=== PATIENT | female | born 1990 | race Caucasian/White ===

== ENCOUNTER 2022-06-13 18:38 | Outpatient (CLI) | payer BC, SELFPAY | END 2022-06-13 18:39 | disposition home or self-care (01) | LOC: NFLDUCREF 06-16 09:58 | PROVIDERS: PCP Nurse Practitioner Family; Visit Provider Registered Nurse | DX: R30.0 Dysuria (principal); N39.0 Urinary tract infection, site not specified | CPT/HCPCS: 87086 ==

== ENCOUNTER 2022-07-15 09:59 | Outpatient (CLI) | payer BC, SELFPAY ==
[2022-07-15 10:22] LABS: Appearance Urine Clear (Clear); Bilirubin Urine Negative (Negative); Blood Urine Negative (Negative); Color Urine Yellow (Yellow); Glucose Urine Negative (Negative); Ketones Urine Negative (Negative); Leukocyte Esterase Urine Negative (Negative); Nitrite Urine Negative (Negative); Protein Urine Negative (Negative); Specific Gravity Urine <= 1.005 (1.000-1.030); Urobilinogen Urine 0.2 (0.2-1.0); pH Urine 6.5 (5.0-8.5)
[2022-07-15 15:30] LABS: Basophils Absolute Auto 0.04 K/uL (0.00-0.30); Basophils Percent Auto 0.5 % (0.0-3.0); Eosinophils Percent Auto 1.2 % (0.0-7.0); Hemoglobin* 13.8 gm/dL (12.0-16.0); Immature Granulocytes Abs Auto 0.03 K/uL (0.00-0.30); Immature Granulocytes Pct Auto 0.4 %; Lymphocytes Absolute Auto 1.86 K/uL (0.90-2.90); Lymphocytes Percent Auto 21.9 % (20-44); Mean Corpuscular HGB Conc 34 gm/dL (32-36); Mean Corpuscular Hemoglobin 27 pg (26-34); Mean Corpuscular Volume 80 fL (80-100); Monocytes Percent Auto 11.9 % (0.0-11.0); Neutrophils Absolute Auto 5.45 K/uL (1.7-7.0); Neutrophils Percent Auto 64.1 % (42.0-72.0); Platelet Count* 257 K/uL (140-440); RDW Coefficient of Variation % 13.8 % (11.5-15.5); Red Blood Count 5.16 m/uL (4.00-5.20); White Blood Count* 8.49 K/uL (4.50-11.00)
[2022-07-15 15:35] LABS: Slide Review Reflex No
[2022-07-15 15:37] LABS: Chloride* 103 mmol/L (96-114); Potassium* 3.5 mmol/L (3.6-5.1); Sodium* 138 mmol/L (135-149)
[2022-07-15 15:40] LABS: Blood Urea Nitrogen* 7 mg/dL (5-24); Calcium* 9.4 mg/dL (8.4-10.6); Carbon Dioxide* 23 mmol/L (20-32); Creatinine* 0.6 mg/dL (0.5-1.5); Estimated Glomerular Filt Rate 122 ml/min; Glucose* 102 mg/dL (60-115)
[2022-07-15 17:15] LABS: Strep A DNA Probe* NOT DETECTED (Not Detectd)
== END 2022-07-15 10:00 | disposition home or self-care (01) ==
PROVIDERS: PCP Nurse Practitioner Family; Visit Provider Nurse Practitioner Family
DX: J02.9 Acute pharyngitis, unspecified (principal); I10 Essential (primary) hypertension
CPT/HCPCS: 80048; 81003; 85025; 87651

== ENCOUNTER 2022-07-19 17:28 | Outpatient (CLI) | payer BC, SELFPAY ==
[2022-07-19 19:45] LABS: Alanine Aminotransferase* 22 U/L (4-35); Aspartate Amino Transferase* 34 U/L (12-35); Blood Urea Nitrogen* 11 mg/dL (5-24); Creatinine* 0.6 mg/dL (0.5-1.5); Estimated Glomerular Filt Rate 122 ml/min; Uric Acid* 5.7 mg/dL (2.2-8.4)
[2022-07-19 19:48] LABS: Total Protein Urine 33 mg/dL
[2022-07-19 20:00] LABS: Creatinine Urine 98.6 mg/dL
[2022-07-19 20:19] LABS: Hepatitis B Surface Antigen* Negative (Negative)
[2022-07-19 20:26] LABS: HIV 1/2/P24 Combo Screen* Negative (Negative)
[2022-07-19 20:37] LABS: Hepatitis C Virus Antibody* Negative (Negative)
[2022-07-19 21:28] LABS: Chlamydia DNA Amplified* NOT DETECTED (No Detected); GC DNA Amplified* NOT DETECTED (No Detected)
[2022-07-22 02:59] LABS: Rapid Plasma Reagin (RPR) Non Reactive (Non Reactive)
[2022-07-22 05:46] LABS: Varicella-Zoster Virus Ab, IgG >4000.0 IV
[2022-07-22 05:47] LABS: Rubella Antibody IgG 15.1 IU/mL
[2022-07-30 16:15] LABS: Cystic Fibrosis, Allele 2 Negative
== END 2022-07-19 17:29 | disposition home or self-care (01) ==
PROVIDERS: PCP Nurse Practitioner Family; Visit Provider Physician Assistant
DX: Z34.91 Encounter for supervision of normal pregnancy, unspecified, first trimester (principal); Z3A.01 Less than 8 weeks gestation of pregnancy
CPT/HCPCS: 76817; 81220; 82565; 82570; 84156; 84450; 84460; 84520; 84550; 86592; 86703; 86762; 86787; 86803; 86850; 86900; 86901; 87086; 87340; 87491; 87591

== ENCOUNTER 2022-07-29 08:56 | Outpatient (CLI) | payer BC, SELFPAY | END 2022-07-29 08:57 | disposition home or self-care (01) | LOC: RAD 08:57 | PROVIDERS: PCP Nurse Practitioner Family; Visit Provider Physician Assistant | DX: I51.7 Cardiomegaly (principal) | CPT/HCPCS: 93306 ==

== ENCOUNTER 2022-09-14 08:26 | Outpatient (CLI) | payer BC, SELFPAY ==
[2022-09-14 12:42] LABS: Calcium* 9.7 mg/dL (8.4-10.6)
[2022-09-14 13:36] LABS: Thyroid Stimulating Hormone* 0.378 uIU/mL (0.270-4.20)
[2022-09-17 10:38] LABS: Renin Activity 2.9 ng/mL/hr
== END 2022-09-14 08:27 | disposition home or self-care (01) ==
PROVIDERS: PCP Nurse Practitioner Family; Visit Provider Obstetrics & Gynecology
DX: I10 Essential (primary) hypertension (principal); I77.810 Thoracic aortic ectasia; E66.9 Obesity, unspecified
CPT/HCPCS: 82088; 82310; 84244; 84443

== ENCOUNTER 2022-10-11 11:05 | Outpatient (CLI) | payer BC, SELFPAY ==
--- NOTE | 2022-10-11 11:00 | CRLHL7_ITS ---
For Patients: As a result of the Century Cures Act, medical imaging exams and procedure reports are released immediately into your electronic medical record. You may view this report before your referring provider. If you have questions, please contact your health care provider. INDICATION: Evaluate anatomy. COMPARISON: 07/19/2022 TECHNIQUE: Real time sousa scale imaging of the fetus was performed as well as color Doppler analysis of the umbilical vessels. FINDINGS: Sonographic imaging demonstrates a single living intrauterine gestation. Fetus demonstrates a regular cardiac rate of 129 beats per minute. Fetus has a variable position. The placenta lies anteriorly without evidence of placenta previa. The edge of the placenta is located 5.6 cm from the internal cervical os. Amniotic fluid volume appears normal. Single deepest vertical pocket: 3.3 cm. The cervix is closed and measures 5.4 cm in length. The composite ultrasound gestational age is calculated at 19 weeks 4 days with an estimated sonographic due date of 03/03/2023. The estimated weight is 304 grams which lies at the 82nd %. The following biometric measurements were obtained: Biparietal diameter: 4.4 cm/19 weeks 1 day 60th% Head circumference: 16.6 cm/19 weeks 2 days 58th% Abdominal circumference: 14.5 cm/19 weeks 6 days 72nd% Femur length: 3.1 cm/19 weeks 4 days 65th% The HC/AC ratio measures: 1.15 range (1.08-1.26) On anatomic survey, there is a normal appearance of the cerebral ventricles, cavum septi pellucidi, cisterna magna and cerebellum. The nose, lips, and facial profile appear normal. The cervical, thoracic and lumbar spine are well visualized and appear normal. There is a normal four-chamber heart view and the left and right ventricular outflow tracts appear normal. The diaphragm and stomach appear normal. The kidneys and bladder also appear normal. There is a normal three-vessel cord and there is an eccentric cord insertion site. The four extremities appear normal. IMPRESSION: Normal OB ultrasound exam with concordance of clinical and sonographic dating. No intrinsic abnormalities noted on anatomic survey. Dictated by Jim Arias MD @ 10/11/2022 12:32:20 PM (Electronically Signed)
== END 2022-10-11 11:06 | disposition home or self-care (01) ==
LOC: US 11:06
PROVIDERS: PCP Nurse Practitioner Family; Visit Provider Obstetrics & Gynecology
DX: O10.912 Unspecified pre-existing hypertension complicating pregnancy, second trimester (principal); Z3A.19 19 weeks gestation of pregnancy
CPT/HCPCS: 76805

== ENCOUNTER 2022-12-14 10:20 | Outpatient (CLI) | payer BC, SELFPAY | END 2022-12-14 10:21 | disposition home or self-care (01) | LOC: NFLDREF 12-16 15:30 | PROVIDERS: PCP Nurse Practitioner Family; Referring Provider Nurse Practitioner Family; Visit Provider Obstetrics & Gynecology | DX: O10.913 Unspecified pre-existing hypertension complicating pregnancy, third trimester (principal); O34.219 Maternal care for unspecified type scar from previous cesarean delivery; Z3A.28 28 weeks gestation of pregnancy | CPT/HCPCS: 86592 ==

== ENCOUNTER 2023-02-16 14:30 | Outpatient (RCR) | payer BC, SELFPAY ==
--- NOTE | 2023-02-08 10:04 | URNOTE ---
REceived request for prior auth for Jennifer ([id number]). Per [employer] prior authorization is not required.
[2023-02-08 14:24] VITALS: BP 123/79; PULSE 75; RESP 16; TEMP 36.1; O2SAT 96
[2023-02-08] MEDS: IRON SUCROSE COMPLEX 200 MG in 0.9 % SODIUM CHLORIDE 100 ml 100 ML 440 MG IVPB (14:57)
[2023-02-08 15:40] VITALS: BP 130/84; PULSE 76; RESP 16; TEMP 36.1; O2SAT 998
[2023-02-10 14:45] VITALS: BP 138/96; PULSE 81; RESP 20; TEMP 36.8; O2SAT 97
[2023-02-10] MEDS: IRON SUCROSE COMPLEX 200 MG in 0.9 % SODIUM CHLORIDE 100 ml 100 ML 440 MG IVPB (15:10)
[2023-02-14 14:35] VITALS: BP 131/80; PULSE 88; RESP 16; TEMP 36.7; O2SAT 97
[2023-02-14 14:45] VITALS: BP 131/80; PULSE 88; RESP 16; TEMP 36.7; O2SAT 97
[2023-02-14] MEDS: IRON SUCROSE COMPLEX 200 MG in 0.9 % SODIUM CHLORIDE 100 ml 100 ML 440 MG IVPB (15:03)
[2023-02-14 15:20] VITALS: BP 134/89; PULSE 78; RESP 16; TEMP 37; O2SAT 97
[2023-02-14 15:47] VITALS: BP 133/82; PULSE 79; RESP 16; TEMP 36.3; O2SAT 98
[2023-02-16 14:44] VITALS: BP 124/83; PULSE 151; RESP 16; TEMP 36.4; O2SAT 96
[2023-02-16] MEDS: IRON SUCROSE COMPLEX 200 MG in 0.9 % SODIUM CHLORIDE 100 ml 100 ML 440 MG IVPB (14:58)
[2023-02-16 15:00] VITALS: PULSE 80; RESP 14; O2SAT 97
== END 2023-08-07 23:59 | disposition home or self-care (01) ==
LOC: CCIC 14:30
PROVIDERS: PCP Nurse Practitioner Family; Referring Provider Nurse Practitioner Family; Visit Provider Obstetrics & Gynecology
DX: D64.9 Anemia, unspecified (principal)
CPT/HCPCS: 76819; 82565; 82570; 84156; 84450; 84460; 84520; 96374; J1756

== ENCOUNTER 2023-02-27 14:33 | Outpatient (CLI) | payer BC, SELFPAY ==
--- NOTE | 2023-02-27 17:00 | W.PM.LAC.MC ---
Consult Note - Mom Date of Visit Date of visit: 02/27/23 clinical application consultant: Lynda Albert Visit Code: Visit Patient's Information Phone number: [phone] : 4 Para: 3 Allergies adhesive Allergy (Intermediate, Verified 02/08/23 12:47) Rash Mother's Medical History: Medical History History of pre-eclampsia ?Z87.59 - Personal history of other complications of , childbirth and the puerperium (ICD-10) Obesity ?E66.9 - Obesity, unspecified (ICD-10) Hypertension ?I10 - Essential (primary) hypertension (ICD-10) Aortic Root Dilation Type of Contraception: TL Delivery Information Delivery type: Repeat Section Weeks Gestation: 37.3 Gestational Age: AGA Weight: 3.07 kg Discharge Weight: 2.778 kg Baby's Information Baby's Age at Visit: 9 days Baby's Provider or Clinic: Dr. Nation Jaundice: No Reason for Consult Reason for Consult: difficulty latching Past Experience Past Experience: Yes (questionable hx of low milk supply, nursed 2nd baby ~ 1 month) Current Frequency of Day Feedings: every 2 - 3 hours around the clock Both Breasts: Yes (nurses baby once/day d/t difficulty latching) Pumping Pumping: Yes (pumps with every feeding) Quantity Pumped: 3 - 6 oz total each time Supplementing EMB Supplement: Yes (2 - 2.5 oz every feeding) Formula Supplement: Yes (will offer another oz of formula) Baby Elimination Number of Wet Diapers a Day: almost every feeding Number of BM a Day: almost every feeding; yellow and seedy Breast/Nipple Condition Breast Information: WNL Engorgement: No Maternal Nipple Condition - Left: Common Nipple Maternal Nipple Condition - Right: Common Nipple Sore Nipples: No Onsite Pre-Feed weight: 3.076 kg Post-Feed weight: 3.114 kg Milk Transferred (mL): 38 Assessments/Interventions Assessments/Interventions: Met with mom and this now 9 day old ex- term AGA baby for consult. Mom rec'd some of her care and delivered at [facility] d/t an aortic root dilation. Baby was in the NICU for the first few days d/t extended need for CPAP. Mom reports she has a hard time latching baby, even with a nipple shield, so she only nurses about once/day. Otherwise baby is bottle fed 2 - 2.5 oz EBM, then offered 1 oz formula every 2 - 3 hours around the clock. Mom is pumping with every feeding and gets between 3 - 6 oz total each time. She states she was instructed to keep baby on this schedule d/t an 11% weight loss while in the hospital. Breasts WNL- symmetrical with rounded lower quadrants, intramammary distance is < 1.5 inches. Nipples are everted and don't flatten or retract on compression; no damage noted. Mom reports a history of low milk supply stating her milk did not come in at all with her first child, and with her second she was able to nurse for about a month. Baby has gained 49 grams/day since her last visit on 02/22 and she's now at BW at 9 DOL. Mom denies any caput/cephalohematoma at delivery. States she may prefer turning her head to the left but has equal ROM when moving her extremities. Baby's palate is WNL. Her upper frenulum is a little tight as her lip is somewhat difficult to flange and her gums mani. Her tongue consistently extends past the gumline when sucking on a finger and she has a strong suck. The tongue has some canoeing when lateralizing. The lower frenulum wasn't visualized. Mom started nursing baby in the cross cradle position on the left side with the shield. After a few minutes she removed the shield, baby was adjusted to be more tummy to tummy, and she was able to latch baby without the shield. Baby nursed about 15 minutes, needing some stimulation to stay awake. Mom then switched her to the right side and was able to latch her without the shield after a few attempts. Baby nursed about 10 minutes. Mom reported the latch felt deep, she was comfortable, swallowing was heard throughout the feeding. Baby transferred 38 ml. Mom was measured and a smaller flange size was suggested, handout given. Baby still seemed hungry so mom gave her 1 oz EBM and she fell asleep. Plan: 1. Start nursing with at least daytime feedings. Practice without the shield, but it's ok if you need to use it. Offer both sides and work to keep her awake and nutritively suckling. 2. Baby will probably still need to be supplemented, but watch her cues. Suggested mom start with offering 1 oz of EBM and she really shouldn't need formula anymore. 3. D/T hx of low supply, suggested she still pump 4 - 6 times/day until she feels confident in her supply and how baby is nursing. 4. Will f/u with PCP for a 2 week C and in for a one month pre and post feeding weight. Meds Home Medications and Allergies Home Medications Medication Instructions Recorded Confirmed Type docosahexaenoic acid 200 mg mg PO 08/16/22 02/08/23 History capsule ( DHA) aspirin 81 mg tablet,delayed 81 mg PO QDAY 11/07/22 02/08/23 History release (Adult Aspirin Regimen) ferrous gluconate 236 mg (27 mg 236 mg PO QDAY 01/18/23 02/08/23 History iron) tablet Allergies Allergy/AdvReac Type Severity Reaction Status Date / Time adhesive Allergy Intermediate Rash Verified 02/08/23 12:47
== END 2023-02-27 14:34 | disposition home or self-care (01) ==
PROVIDERS: PCP Nurse Practitioner Family; Visit Provider Obstetrics & Gynecology
DX: Z39.1 Encounter for care and examination of lactating mother (principal)
CPT/HCPCS: 99211

== ENCOUNTER 2023-03-03 10:43 | Outpatient (CLI) | payer BC, SELFPAY | END 2023-03-03 10:44 | disposition home or self-care (01) | PROVIDERS: PCP Nurse Practitioner Family; Visit Provider Obstetrics & Gynecology | DX: R30.0 Dysuria (principal) | CPT/HCPCS: 87086 ==

== ENCOUNTER 2024-06-25 18:00 | Outpatient (CLI) | payer BC, SELFPAY | END 2024-06-25 18:01 | disposition home or self-care (01) | LOC: NFLDREF 06-27 13:04 | PROVIDERS: PCP Nurse Practitioner Family; Referring Provider Nurse Practitioner Family; Visit Provider Nurse Practitioner Family | DX: I10 Essential (primary) hypertension (principal); I77.810 Thoracic aortic ectasia; I51.7 Cardiomegaly | CPT/HCPCS: 80053 ==

== ENCOUNTER 2024-07-22 09:50 | Outpatient (CLI) | payer BC, SELFPAY | END 2024-07-22 09:51 | disposition home or self-care (01) | LOC: RAD 09:52 | PROVIDERS: PCP Nurse Practitioner Family; Visit Provider Nurse Practitioner Family | DX: I77.810 Thoracic aortic ectasia (principal); I51.7 Cardiomegaly; I10 Essential (primary) hypertension | CPT/HCPCS: 93306 ==

== ENCOUNTER 2024-07-22 11:39 | Outpatient (CLI) | payer BC, SELFPAY ==
[2024-07-22 14:19] LABS: Chlamydia DNA Amplified* NOT DETECTED (No Detected); GC DNA Amplified* NOT DETECTED (No Detected)
[2024-07-24 18:36] LABS: HPV Source Cervix; HPV, High Risk by TMA Not Detected
== END 2024-07-22 11:40 | disposition home or self-care (01) ==
PROVIDERS: PCP Nurse Practitioner Family; Visit Provider Obstetrics & Gynecology
DX: N93.9 Abnormal uterine and vaginal bleeding, unspecified (principal); Z12.4 Encounter for screening for malignant neoplasm of cervix
CPT/HCPCS: 87491; 87591; 87624; 87625; 88141; 88142

== ENCOUNTER 2024-07-29 17:34 | Outpatient (CLI) | payer BC, SELFPAY ==
--- NOTE | 2024-07-29 17:30 | CRLHL7_ITS ---
For Patients: As a result of the Century Cures Act, medical imaging exams and procedure reports are released immediately into your electronic medical record. You may view this report before your referring provider. If you have questions, please contact your health care provider. INDICATION: Abnormal uterine bleeding. COMPARISON: None available. FINDINGS: Transvaginal and transabdominal ultrasound examination of the female pelvis was performed. Initial examination is performed with transabdominal technique and transvaginal technique is used for better visualization of the pelvic structures. The uterus is anteverted with no evidence of mass. It measures 8.9 x 4.3 x 5.6 cm. The endometrial lining is normal in thickness at 3 mm. The ovaries are normal in appearance and size, the right measuring 3.9 x 2.2 x 1.8 cm and the left measuring 4.3 x 1.6 x 1.8 cm. There is normal color and pulse doppler flow in both ovaries. There is no sign of free fluid in the pelvis. IMPRESSION: Normal ultrasound examination of the female pelvis using transvaginal and transabdominal technique. Dictated by Tim Price MD @ 07/30/2024 11:28:07 AM (Electronically Signed)
== END 2024-07-29 17:35 | disposition home or self-care (01) ==
LOC: US 17:35
PROVIDERS: PCP Nurse Practitioner Family; Visit Provider Obstetrics & Gynecology
DX: N93.9 Abnormal uterine and vaginal bleeding, unspecified (principal)
CPT/HCPCS: 76830; 76856

== ENCOUNTER 2025-03-31 15:20 | Outpatient (CLI) | payer BC, SELFPAY | END 2025-03-31 15:21 | disposition home or self-care (01) | LOC: NFLDREF 04-03 13:40 | PROVIDERS: PCP Nurse Practitioner Family; Referring Provider Nurse Practitioner Family; Visit Provider Nurse Practitioner Family | DX: Z11.9 Encounter for screening for infectious and parasitic diseases, unspecified (principal) | CPT/HCPCS: 86480 ==